=== PATIENT | female | born 1960 | race Caucasian/White ===

== ENCOUNTER 2024-05-28 08:53 | Inpatient (IN) | payer MEDICAID ==
[~2024-05-28] VITALS: Ht 157.5 cm; Wt 66.0 kg
[2024-05-28 09:12] VITALS: BP_SYST 98; PULSE 70; RESP 16; TEMP 97.7; O2SAT 98
[2024-05-28 09:59] LABS: BASOPHILS % (AUTO) 0.4 % (0.0-2.0); EOSINOPHILS # (AUTO) 0.2 K/uL (0.0-0.4); EOSINOPHILS % (AUTO) 1.6 % (0.0-4.0); HEMOGLOBIN 10.9 g/dL (12.0-16.0); LYMPHOCYTES # (AUTO) 1.4 K/uL (1.0-5.5); LYMPHOCYTES % (AUTO) 12.1 % (20.5-51.5); MEAN CORPUSCULAR HEMOGLOBIN 26 pg (27-31); MEAN CORPUSCULAR HGB CONC 32 % (32-36); MEAN CORPUSCULAR VOLUME 82 fL (79.0-98.0); MONOCYTES # (AUTO) 0.6 K/uL (0.0-1.0); MONOCYTES % (AUTO) 5.5 % (1.7-9.3); NEUTROPHILS % (AUTO) 80.4 % (40.0-70.0); PLATELET COUNT (AUTO) 401 K/uL (130-430); RED BLOOD CELL COUNT(AUTO) 4.14 MIL/uL (4.2-6.2); RED CELL DISTRIBUTION WIDTH 16.1 % (9.0-15.0); WHITE BLOOD COUNT (AUTO) 11.2 K/uL (4.8-10.8)
[2024-05-28 10:08] LABS: BILIRUBIN,URINE NEGATIVE (NEGATIVE); BLOOD, URINE 2+ (NEGATIVE); CLARITY/URINE CLOUDY (CLEAR); COLOR,URINE YELLOW (YELLOW); GLUCOSE,URINE NEGATIVE (NEGATIVE); KETONES,URINE NEGATIVE (NEGATIVE); LEUKOCYTE ESTERASE ,URINE 2+ (NEGATIVE); NITRITE, URINE NEGATIVE (NEGATIVE); PROTEIN URINE 2+ (NEGATIVE); UROBILINOGEN,URINE 0.2 (0.2-1.0)
[2024-05-28 10:16] LABS: WBC,URINE 20-50 /HPF (0-3)
[2024-05-28 10:17] LABS: BACTERIA,URINE MODERATE /HPF (None Seen)
[2024-05-28 10:26] LABS: ALBUMIN 2.6 g/dL (3.4-4.8); CALCIUM 9.6 mg/dL (8.4-11.0); CREATININE 2.88 mg/dL (0.55-1.30); POTASSIUM 4.3 mmol/L (3.5-5.1); TOTAL BILIRUBIN 0.3 mg/dL (0.0-1.0); TOTAL PROTEIN, SERUM 8.3 g/dL (6.4-8.3)
[2024-05-28] MEDS: NACL 0.9% 1,000 ML IV ONE (11:15)
[2024-05-28] MEDS ORDERED: ACETAMINOPHEN 325 MG TABLET PO PRN (12:15)
[2024-05-28] MEDS: 0.45% NS 500 ML IV ONE (12:30)
[2024-05-28] MEDS ORDERED: LEVO25TA7 PO (13:40)
[2024-05-28] MEDS ORDERED: OMEP20CA15 PO (13:40)
[2024-05-28] MEDS ORDERED: PARO-147 PO (13:40)
[2024-05-28] MEDS ORDERED: cefTRIAXone 1 GM VIAL ONE (16:06)
[2024-05-28] MEDS: cefTRIAXone 1 GM in D5W 50 ML IV SCH (16:09)
[2024-05-28 16:24] VITALS: BP_SYST 100; PULSE 74; RESP 17; TEMP 97.9; O2SAT 100
[2024-05-28 16:37] VITALS: BP_SYST 100; PULSE 74; RESP 17; TEMP 97.9; O2SAT 100
[2024-05-28 20:00] VITALS: BP_SYST 101; PULSE 92; RESP 18; TEMP 98.2; O2SAT 99
[2024-05-28] MEDS ORDERED: ZOLPIDEM TARTRATE 5 MG TABLET PO PRN (21:00)
[2024-05-28] MEDS: MORPHINE 4 MG INJ. 4 MG/ML VIAL IVP PRN (21:54)
[2024-05-28] MEDS: ONDANSETRON HCL 4 MG/2 ML VIAL IVP PRN (21:55)
[2024-05-29] VITALS (7 sets, daily range): BP systolic 90–104; PULSE 60–77; RESP 15–19; TEMP 96.5–98.6; O2SAT 97–99
[2024-05-29 06:49] LABS: BASOPHILS % (AUTO) 0.3 % (0.0-2.0); EOSINOPHILS # (AUTO) 0.1 K/uL (0.0-0.4); EOSINOPHILS % (AUTO) 1.4 % (0.0-4.0); HEMATOCRIT 32.4 % (36-48); HEMOGLOBIN 10.5 g/dL (12.0-16.0); LYMPHOCYTES # (AUTO) 2.4 K/uL (1.0-5.5); LYMPHOCYTES % (AUTO) 27.2 % (20.5-51.5); MEAN CORPUSCULAR HEMOGLOBIN 26 pg (27-31); MEAN CORPUSCULAR HGB CONC 32 % (32-36); MEAN CORPUSCULAR VOLUME 81 fL (79.0-98.0); MONOCYTES # (AUTO) 0.9 K/uL (0.0-1.0); MONOCYTES % (AUTO) 10.9 % (1.7-9.3); NEUTROPHILS # (AUTO) 5.2 K/uL (1.8-7.7); NEUTROPHILS % (AUTO) 60.2 % (40.0-70.0); PLATELET COUNT (AUTO) 403 K/uL (130-430); RED BLOOD CELL COUNT(AUTO) 4.01 MIL/uL (4.2-6.2); RED CELL DISTRIBUTION WIDTH 15.8 % (9.0-15.0); WHITE BLOOD COUNT (AUTO) 8.7 K/uL (4.8-10.8)
[2024-05-29 07:26] LABS: TOTAL IRON BIND. CAPACITY 179 ug/dL (250-450)
[2024-05-29 07:39] LABS: CALCIUM 8.9 mg/dL (8.4-11.0); CREATININE 2.61 mg/dL (0.55-1.30); POTASSIUM 3.9 mmol/L (3.5-5.1); TOTAL BILIRUBIN 0.3 mg/dL (0.0-1.0); TOTAL PROTEIN, SERUM 6.9 g/dL (6.4-8.3)
[2024-05-29] MEDS ORDERED: ONDANSETRON HCL 4 MG/2 ML VIAL IVP PRN (13:15)
[2024-05-29] MEDS ORDERED: BISACODYL 5 MG TABLET.DR (DULCOLAX) PO PRN (13:30)
[2024-05-29] MEDS: DOCUSATE SODIUM 250 MG CAPSULE PO SCH (21:00)
[2024-05-29] MEDS: traMADol HCL HCL 50 MG TABLET (ULTRAM) PO PRN (21:02)
[2024-05-30] VITALS: BP_SYST 101; PULSE 77; RESP 18; TEMP 96.9; O2SAT 98
[2024-05-30 06:14] LABS: BASOPHILS % (AUTO) 0.5 % (0.0-2.0); EOSINOPHILS # (AUTO) 0.2 K/uL (0.0-0.4); EOSINOPHILS % (AUTO) 2.1 % (0.0-4.0); HEMATOCRIT 31.5 % (36-48); HEMOGLOBIN 10.2 g/dL (12.0-16.0); LYMPHOCYTES # (AUTO) 1.8 K/uL (1.0-5.5); LYMPHOCYTES % (AUTO) 20.7 % (20.5-51.5); MEAN CORPUSCULAR HEMOGLOBIN 26 pg (27-31); MEAN CORPUSCULAR HGB CONC 32 % (32-36); MEAN CORPUSCULAR VOLUME 81 fL (79.0-98.0); MONOCYTES # (AUTO) 0.7 K/uL (0.0-1.0); MONOCYTES % (AUTO) 7.8 % (1.7-9.3); NEUTROPHILS # (AUTO) 5.9 K/uL (1.8-7.7); NEUTROPHILS % (AUTO) 68.9 % (40.0-70.0); PLATELET COUNT (AUTO) 383 K/uL (130-430); RED CELL DISTRIBUTION WIDTH 15.9 % (9.0-15.0); WHITE BLOOD COUNT (AUTO) 8.6 K/uL (4.8-10.8)
[2024-05-30 06:34] LABS: ALBUMIN 1.9 g/dL (3.4-4.8); CREATININE 2.76 mg/dL (0.55-1.30); POTASSIUM 3.7 mmol/L (3.5-5.1); TOTAL BILIRUBIN 0.2 mg/dL (0.0-1.0); TOTAL PROTEIN, SERUM 6.7 g/dL (6.4-8.3)
[2024-05-30 08:53] VITALS: BP_SYST 93; PULSE 66; RESP 18; TEMP 98; O2SAT 98
[2024-05-30 11:16] VITALS: BP_SYST 81; PULSE 62; RESP 18; TEMP 97.8; O2SAT 94
[2024-05-30] MEDS: NACL 0.9% 1,000 ML IV SCH (13:28)
[2024-05-30] MEDS: CYANOCOBALAMIN 1000 MCG/ML VIAL IM ONE (13:28)
[2024-05-30] MEDS: NEPHROVITE, (FOLIC ACID/VITAMIN B COMP W-C 1 TAB) PO ONE (13:28)
[2024-05-30] MEDS: MIDODRINE HCL 5 MG TABLET (PROAMATINE) PO SCH (15:51)
[2024-05-30 16:15] VITALS: BP_SYST 89; PULSE 64; RESP 18; TEMP 97.9; O2SAT 95
[2024-05-30 19:00] VITALS: O2SAT 97
[2024-05-30 20:00] VITALS: BP_SYST 111; PULSE 69; RESP 19; TEMP 98.4; O2SAT 98
[2024-05-30] MEDS: ONDANSETRON HCL 4 MG/2 ML VIAL IVP PRN (21:16)
[2024-05-31 01:13] VITALS: BP_SYST 127; BP_SYST 98; PULSE 70; RESP 18; TEMP 99.6; O2SAT 97
[2024-05-31 05:58] LABS: BASOPHILS % (AUTO) 0.6 % (0.0-2.0); EOSINOPHILS # (AUTO) 0.2 K/uL (0.0-0.4); EOSINOPHILS % (AUTO) 2.9 % (0.0-4.0); HEMATOCRIT 31.8 % (36-48); HEMOGLOBIN 10.1 g/dL (12.0-16.0); LYMPHOCYTES % (AUTO) 35.8 % (20.5-51.5); MEAN CORPUSCULAR HEMOGLOBIN 26 pg (27-31); MEAN CORPUSCULAR HGB CONC 32 % (32-36); MEAN CORPUSCULAR VOLUME 82 fL (79.0-98.0); MONOCYTES # (AUTO) 0.7 K/uL (0.0-1.0); MONOCYTES % (AUTO) 8.3 % (1.7-9.3); NEUTROPHILS # (AUTO) 4.3 K/uL (1.8-7.7); NEUTROPHILS % (AUTO) 52.4 % (40.0-70.0); PLATELET COUNT (AUTO) 385 K/uL (130-430); RED BLOOD CELL COUNT(AUTO) 3.86 MIL/uL (4.2-6.2); RED CELL DISTRIBUTION WIDTH 16.3 % (9.0-15.0); WHITE BLOOD COUNT (AUTO) 8.2 K/uL (4.8-10.8)
[2024-05-31 06:26] LABS: ALBUMIN 1.7 g/dL (3.4-4.8); CALCIUM 8.8 mg/dL (8.4-11.0); CREATININE 2.7 mg/dL (0.55-1.30); POTASSIUM 3.7 mmol/L (3.5-5.1); TOTAL BILIRUBIN 0.2 mg/dL (0.0-1.0); TOTAL PROTEIN, SERUM 6.1 g/dL (6.4-8.3)
[2024-05-31 10:13] VITALS: BP_SYST 88; PULSE 65; RESP 16; TEMP 97.7; O2SAT 98
[2024-05-31] MEDS: CYANOCOBALAMIN (VITAMIN B-12) 1,000 MCG TABLET PO SCH (10:18)
[2024-05-31] MEDS: NEPHROVITE, (FOLIC ACID/VITAMIN B COMP W-C 1 TAB) PO SCH (10:18)
[2024-05-31 11:13] VITALS: BP_SYST 83; PULSE 67; RESP 16; TEMP 98.4; O2SAT 98
[2024-05-31] MEDS: LEVOTHYROXINE SODIUM 0.137 MG TABLET PO ONE (13:18)
[2024-05-31] MEDS: PARoxetine HCL 20 MG TABLET PO ONE (13:18)
[2024-05-31] MEDS: CIPROFLOXACIN HCL 500 MG TABLET PO ONE (13:18)
[2024-05-31] MEDS: PANTOPRAZOLE SODIUM 40 MG TAB PO ONE (13:18)
[2024-05-31 15:56] VITALS: BP_SYST 85; PULSE 69; RESP 16; TEMP 98.2; O2SAT 98
[2024-05-31] MEDS ORDERED: CIPR-260 PO (18:16)
[2024-05-31] MEDS ORDERED: LACT1CAP72 PO (18:18)
[2024-05-31] MEDS ORDERED: MIDO5TAB4 PO (18:23)
[2024-05-31 18:55] VITALS: BP_SYST 93; PULSE 69; RESP 18; TEMP 98.2; O2SAT 98
[2024-05-31 19:15] VITALS: BP_SYST 128; PULSE 63; RESP 20; TEMP 98.4; O2SAT 95
[2024-05-31] MEDS ORDERED: CIPROFLOXACIN HCL 500 MG TABLET PO SCH (22:00)
[2024-06-01] MEDS ORDERED: LEVOTHYROXINE SODIUM 0.137 MG TABLET PO SCH (07:00)
[2024-06-01] MEDS ORDERED: PANTOPRAZOLE SODIUM 40 MG TAB PO SCH (09:00)
[2024-06-01] MEDS ORDERED: PARoxetine HCL 20 MG TABLET PO SCH (09:00)
== END 2024-05-31 19:55 | disposition home or self-care (01) | DRG 466 ==
LOC: SED 08:53 → SMU 11:07
PROVIDERS: ADMIT Internal Medicine; ATTEND Internal Medicine
DX: T83.518A Infection and inflammatory reaction due to other urinary catheter, initial encounter (principal); N17.9 Acute kidney failure, unspecified; E44.0 Moderate protein-calorie malnutrition; I95.89 Other hypotension; N13.6 Pyonephrosis; D63.8 Anemia in other chronic diseases classified elsewhere; E89.0 Postprocedural hypothyroidism; I12.9 Hypertensive chronic kidney disease with stage 1 through stage 4 chronic kidney disease, or unspecified chronic kidney disease; N18.9 Chronic kidney disease, unspecified; Z88.0 Allergy status to penicillin; Z88.8 Allergy status to other drugs, medicaments and biological substances; Z90.49 Acquired absence of other specified parts of digestive tract; Z87.440 Personal history of urinary (tract) infections; Z87.891 Personal history of nicotine dependence; Z79.899 Other long term (current) drug therapy; Z68.26 Body mass index [BMI] 26.0-26.9, adult; B96.20 Unspecified Escherichia coli [E. coli] as the cause of diseases classified elsewhere
CPT/HCPCS: 36415; 71045; 76770; 80053; 81000; 81001; 81015; 82607; 83540; 83550; 83605; 83690; 83880; 85025; 87040; 87086; 87186; 93005; 93306; 96365; 97110-GP; 97116-GP; 97530-GP; 99285; J0696; J1956; J2270; J2405; J3420; J7060